=== PATIENT | female | born 1990 | race Caucasian/White ===

== ENCOUNTER 2019-07-05 05:21 | Emergency (ER) | payer OTHER ==
[~2019-07-05] VITALS: Ht 162.6 cm; Wt 67.8 kg
[~2019-07-05 05:21] MED LIST: CIPR500T4 PO; HYDR-4011 PO; NAPR-985 PO; ONDA4TAB14 PO
[2019-07-05 05:24] VITALS: Ht 162.6 cm; Wt 67.8 kg
[2019-07-05] MEDS ORDERED: morphine 2 MG INJ IV STA (05:44)
[2019-07-05] MEDS ORDERED: SOD CHLORIDE 0.9% 1,000 ML IV STA (05:44)
[2019-07-05] MEDS ORDERED: ONDANSETRON 4 MG INJ IV STA (05:44)
[2019-07-05] MEDS ORDERED: FAMOTIDINE 20 MG INJ IV ONE (06:30)
[2019-07-05] MEDS ORDERED: IOHEXOL 300MG/ML 150 ML BTL ONE (07:22)
[2019-07-05] MEDS ORDERED: SOD CHLORIDE 0.9% 100 ML ONE (07:22)
[2019-07-05 08:08] VITALS: BP 103/70; PULSE 62; RESP 19
== END 2019-07-05 08:09 | disposition home or self-care (01) ==
LOC: FTE 05:21
DX: N39.0 Urinary tract infection, site not specified (principal); J45.909 Unspecified asthma, uncomplicated; F17.210 Nicotine dependence, cigarettes, uncomplicated
CPT/HCPCS: 74177; 76705; 80053; 81001; 83690; 84702; 84703; 85025; J2270; J2405; J7030; Q9967; Z7610; 36415; 96361; 96374; 96375